=== PATIENT | female | born 1985 | race Two or more races ===

== ENCOUNTER 2023-08-16 17:19 | Emergency (ER) | payer OTHER ==
[~2023-08-16] VITALS: Ht 167.6 cm; Wt 65.8 kg
== END 2023-08-16 20:53 | disposition home or self-care (01) ==
LOC: ER 17:19
DX: S61.317A Laceration without foreign body of left little finger with damage to nail, initial encounter (principal); W22.09XA Striking against other stationary object, initial encounter; Y93.01 Activity, walking, marching and hiking; Y92.832 Beach as the place of occurrence of the external cause; Y99.9 Unspecified external cause status